=== PATIENT | female | born 2000 | race African-American/Black ===

== ENCOUNTER 2019-03-25 12:56 | Emergency (ER) | payer MEDICAID, OTHER ==
[~2019-03-25] VITALS: Ht 170.2 cm; Wt 53.0 kg
[2019-03-25] MEDS ORDERED: IBUPROFEN 400MG TABLET PO ONE (14:45)
[2019-03-25] MEDS ORDERED: AMLODIPINE 10MG TABLET PO ONE (16:00)
[2019-03-25] MEDS ORDERED: CLONIDINE 0.1MG TABLET PO ONE (16:00)
[2019-03-25 16:10] VITALS: BP 102/63
== END 2019-03-25 16:27 | disposition home or self-care (01) ==
LOC: ER 12:56
DX: M79.644 Pain in right finger(s) (principal)
CPT/HCPCS: 73130; 99283

== ENCOUNTER 2021-01-19 03:53 | Emergency (ER) | payer MEDICAID ==
[~2021-01-19] VITALS: Ht 170.2 cm; Wt 52.0 kg
[2021-01-19] MEDS ORDERED: SODIUM CHLORIDE 0.9% 1,000 ML IV ONE (04:45)
[2021-01-19] MEDS ORDERED: ONDANSETRON HCL 4MG/2ML INJ IV ONE (04:45)
[2021-01-19 05:10] LABS: BASOPHILS % 0.4 % (0.0-2.0); EOSINOPHILS % 0.6 % (0.0-5.0); HEMATOCRIT. 35.6 % (36.0-48.0); LYMPHOCYTES % 10.7 % (20.0-50.0); MEAN CORPUSCULAR HEMOGLOBIN 27.9 pg (28.0-32.0); MEAN CORPUSCULAR VOLUME 83.2 fL (81.0-99.0); MEAN PLATELET VOLUME 9.3 fl (7.4-10.4); MONOCYTES % 6.7 % (2.0-8.0); NEUTROPHILS % 81.6 % (40.0-76.0); PLATELET 228 x1000/uL (130-400); RED BLOOD CELL COUNT 4.29 mill/uL (4.2-5.4); RED CELL DISTRIBUTION WIDTH 13.7 % (11.6-14.6)
[2021-01-19 05:18] LABS: CHLORIDE 103 mEq/L (98-107)
[2021-01-19 05:56] LABS: CLARITY URINE CLEAR (CLEAR); COLOR URINE YELLOW (YELLOW); KETONES URINE 1+ (NEGATIVE); LEUKOCYTE ESTERASE URINE NEGATIVE (NEGATIVE); NITRITE URINE NEGATIVE (NEGATIVE); OCCULT BLOOD URINE NEGATIVE (NEGATIVE); PH URINE 6.5 (4.5-8.0); PROTEIN URINE NEGATIVE (NEGATIVE); SPECIFIC GRAVITY URINE 1.023 (1.005-1.030)
[2021-01-19 07:59] VITALS: BP 108/56
== END 2021-01-19 08:03 | disposition home or self-care (01) ==
LOC: ER 03:53
DX: O99.511 Diseases of the respiratory system complicating pregnancy, first trimester (principal); J06.9 Acute upper respiratory infection, unspecified; O21.8 Other vomiting complicating pregnancy; E86.0 Dehydration; Z3A.09 9 weeks gestation of pregnancy
CPT/HCPCS: 36415; 76801; 80053; 81003; 84702; 85025; 96361; 96374; 99284; J2405; J7030; 96360